=== PATIENT | female | born 1975 | race American Indian/Alaskan Native ===

== ENCOUNTER 2016-08-25 13:02 | Emergency (ER) | payer BC ==
--- NOTE | 2016-08-25 13:18 | ED PDOC ---
Arrival/HPI - General Chief Complaint: Lower Extremity Problem/Injury Time Seen by Provider: 08/25/16 13:11 Historian: Patient - History of Present Illness Narrative History of Present Illness (Text): 08/25/16 13:15 41 y/o female, no pmh, nkda, c/o rt. 5th toe injury pain s/p TV fall on the rt. toe. aching pain, aggravated by touching, no difficulty moving the toes, no numbness or tingling, no dizziness, no headache or night sweat, no skin breaking , no other medical or psychological complaints. Past Medical History - Provider Review Nursing Documentation Reviewed: Yes - Tetanus Immunization Tetanus Immunization: Unknown - Past Medical History Past Medical History: No Previous - Psychiatric Hx Substance Use: No - Surgical History Hx Arthroscopy: Yes (knee) - Suicidal Assessment Feels Threatened In Home Enviroment: No Family/Social History - Physician Review Nursing Documentation Reviewed: Yes Family/Social History: Unknown Family HX Smoking Status: Never Smoked Hx Alcohol Use: Yes Frequency of alcohol use: Socially Hx Substance Use: No Hx Substance Use Treatment: No Allergies/Home Meds Allergies/Adverse Reactions: Allergies lactase [From [employer]] Allergy (Verified 08/25/16 13:11) URTICARIA Penicillins Allergy (Verified 08/25/16 13:11) URTICARIA Review of Systems - Review of Systems Constitutional: absent: Fatigue, Fevers Eyes: absent: Vision Changes ENT: absent: Hearing Changes Respiratory: absent: SOB, Cough Cardiovascular: absent: Chest Pain Gastrointestinal: absent: Abdominal Pain, Diarrhea, Nausea, Vomiting Musculoskeletal: Arthralgias Skin: absent: Rash, Pruritis, Skin Lesions, Laceration, Abscess, Ulcer, Cellulitis Neurological: absent: Headache, Dizziness Physical Exam Vital Signs Reviewed: Yes Vital Signs Temp Pulse Resp BP Pulse Ox 08/25/16 13:56 98 F 75 19 121/82 99 08/25/16 13:08 98.3 F 79 18 126/84 100 Temperature: Afebrile Blood Pressure: Normal Pulse: Regular Respiratory Rate: Normal Appearance: Positive for: Well-Appearing, Non-Toxic, Comfortable Pain Distress: Mild Mental Status: Positive for: Alert and Oriented X 3 - Systems Exam Head: Present: Atraumatic, Normocephalic Pupils: Present: PERRL Extroacular Muscles: Present: EOMI Conjunctiva: Present: Normal Mouth: Present: Moist Mucous Membranes Neck: Present: Normal Range of Motion Respiratory/Chest: Present: Clear to Auscultation, Good Air Exchange. No: Respiratory Distress, Accessory Muscle Use Cardiovascular: Present: Regular Rate and Rhythm, Normal S1, S2. No: Murmurs Abdomen: Present: Normal Bowel Sounds. No: Tenderness, Distention, Peritoneal Signs Back: Present: Normal Inspection Upper Extremity: Present: Normal Inspection. No: Cyanosis, Edema Lower Extremity: Present: Normal Inspection, Other (Rt. foot: +ttp and mild swelling with mild ecchymosis on the 5th toe region, skin intact, no laceration or abrasion, FROM without limitation, sensation intact, motor 5/5, +DPPT pulses , capillary refill< 2 second, neurovascular intact. ). No: Edema Neurological: Present: GCS=15, Speech Normal, Motor Func Grossly Intact, Gait Normal, Memory Normal Skin: Present: Warm, Dry, Normal Color. No: Rashes Psychiatric: Present: Alert, Oriented x 3, Normal Insight, Normal Concentration Medical Decision Making ED Course and Treatment: 08/25/16 13:17 -motrin/xray 08/25/16 13:37 -xray show +5th toe fracture, caleb tapping, crutches, pt. stated that she doesn 't know how to swallow pills so she will like po suspension. -Discharge home with ibuprofen, crutches, caleb tapping, follow up with your own pmd and industrial illuminating engineer within 2 days, return to the ER for any new or worsening signs or symptoms. - RAD Interpretation Radiology Orders: 08/25/16 13:11 FOOT RIGHT 5TH DIGIT (TOE) [RAD] Stat questionable fracture on the 5th toe. Dishwashing Machine Operator: Radiologist - PA / PURCHASING ADMINISTRATIVE ASSISTANT / Resident Statement MD/DO has reviewed & agrees with the documentation as recorded. Disposition/Present on Arrival - Present on Arrival Any Indicators Present on Arrival: No History of DVT/PE: No History of Uncontrolled Diabetes: No Urinary Catheter: No History of Decub. Ulcer: No History Surgical Site Infection Following: None - Disposition Have Diagnosis and Disposition been Completed?: Yes Diagnosis: Toe injury, Toe fracture Disposition: HOME/ ROUTINE Disposition Time: 13:17 Patient Plan: Discharge Condition: GOOD Additional Instructions: Discharge home with naproxen, crutches, caleb tapping, follow up with your own pmd and industrial illuminating engineer within 2 days, return to the ER for any new or worsening signs or symptoms. Prescriptions: Ibuprofen Susp [Motrin Oral Susp] 25 ml PO QID PRN #300 ml PRN Reason: Other Referrals: Husam Cameron DPM [Staff Provider] - Follow up with primary [facility] [place] [Outside] - Follow up with primary Forms: WORK NOTE
[2016-08-25 13:59] VITALS: BP 121/82; PULSE 75; RESP 19; TEMP 98; O2SAT 99
--- NOTE | 2016-08-25 14:22 | RAD ---
PROCEDURE: Right Foot and 5th toe Radiographs. HISTORY: rt. 5th toe injury and pain COMPARISON: None. FINDINGS: BONES: There is a questionable nondisplaced transverse fracture through the tip of the 5th distal phalanx JOINTS: Normal. SOFT TISSUES: Normal. OTHER FINDINGS: None. IMPRESSION: There is a questionable nondisplaced transverse fracture through the tip of the 5th distal phalanx
== END 2016-08-25 14:08 | disposition home or self-care (01) ==
LOC: ED 13:02
DX: S92.534A Nondisplaced fracture of distal phalanx of right lesser toe(s), initial encounter for closed fracture (principal); W20.8XXA Other cause of strike by thrown, projected or falling object, initial encounter